=== PATIENT | male | born 1955 | race Caucasian/White ===

== ENCOUNTER 2017-10-27 13:29 | Inpatient (IN) | payer MEDICARE, OTHER ==
--- NOTE | 2017-10-27 13:46 | ED Physician Chart ---
ED Chief Complaint/HPI - Patient Information Date Seen:: 10/27/17 Time Seen:: 13:46 Chief Complaint:: Increased agitation History of Present Illness:: 62 yo male was brought from SNF to ER for evaluation of increased agitation, confusion and aggressive behavior towards staff. Allergies:: Allergies Allergy/AdvReac Type Severity Reaction Status Date / Time promethazine Allergy Verified 04/22/16 15:47 ED Review of Systems - Review of Systems General/Constitutional: No fever Skin: No rash Head: No headache ENT: No nasal drainage Neck: No neck pain Cardio Vascular: No chest pain Pulmonary: No SOB GI: No nausea, No vomiting Musculoskeletal: No bone or joint pain Psychiatric: Prior psych history Neurological: No focal symptoms ED Past Medical History - Past Medical History Past Medical History: Dyslipidemia, Arthritis, Dementia, Other (ENCEPHALPATHY, OSTEOPOROSIS, BPH, INSOMNIA) Social History: Non Smoker, No Alcohol, No Drug Use Psychiatricy History: Schizophrenia, Bipolar, Other (Psychosis, anxiety) Family Medical History - Family Member Mother History Unknown: Yes Ethnicity: Living Status: Still Living Hx Family Cancer: No Hx Family Coronary Artery Disease: No Hx Family Congestive Heart Failure: No Hx Family Hypertension: No ED Physical Exam - Physical Examination General/Constitutional: Awake Eyes: PERRL Skin: No ecchymosis ENMT: Nasal exam nl Neck: No nuchal rigidity Respiratory: No Wheeze/Rhonchi/Rales Cardio Vascular: RRR, No murmur, gallop, rubs, NL S1 S2 GI: No tenderness/rebounding/guarding Extremities: normal strength in all extremities Neuro/Psych: No focal deficits ED Labs/Radiology/EKG Results - Radiology Results Results: CXR: no focal consolidation - EKG Interpretations EKG Time:: 13:54 Rate & Rhythm: Sinus rhythm Comments:: right atrial enlargement, incomplete LBBB ED Assessment - Assessment General Assessment: Psychosis Dementia Assessment/Comments:: CBC, CMP CXR, EKG Patient was cleared for geropsych admission ED Septic Shock - . Is Septic Shock (SBP<90, OR Lactate>4 mmol\L) present?: No ED Reassessment (Disposition) - Reassessment Reassessment Condition:: Unchanged - Patient Disposition Discharge/Transfer:: Geropsych w/in this hosp Admitting Psych Physician:: Arden Villegas ED Discharge Plan - Patient Disposition Admit/Discharge/Transfer: Other Care w/in this hosp Condition at Disposition: Stable
[2017-10-27 14:07] LABS: % BASOPHILS 0.2 % (0.0-2.0); % EOSINOPHILS 0.2 % (0.0-5.0); % LYMPHOCYTES 25.5 % (20.0-50.0); % MONOCYTES 9.6 % (2.0-10.0); % NEUTROPHILS 64.5 % (40.0-80.0); HEMATOCRIT 39.7 % (41.0-60); HEMOGLOBIN 13.3 gm/dL (12-16); LYMPHOCYTE ABSOLUTE 1.9 Th/cmm (1.5-3.0); MEAN CELL VOLUME 92.4 fl (80-99); MEAN CORPUSCULAR HEMOGLOBIN 30.9 pg (26.0-30.0); MEAN CORPUSCULAR HGB CONC 33.4 pg (28.0-36.0); MEAN PLATELET VOLUME 8.6 fl; MONOCYTE ABSOLUTE 0.7 Th/cmm (0.3-1.0); NEUTROPHILE ABSOLUTE 4.7 Th/cmm (1.8-8.0); PLATELET COUNT 96 Th/cmm (150-400); RED CELL DISTRIBUTION WIDTH 14.3 % (11.5-20.0)
--- NOTE | 2017-10-27 14:20 | Diagnostic Imaging Report ---
Portable chest x-ray History: Shortness of breath Allowing for portable technique the heart size is normal. No focal pulmonary parenchymal processes. No hilar or mediastinal abnormalities. Impression: No acute abnormalities.
[2017-10-27 14:34] LABS: ALB/GLOB RATIO 1.4 (1.0-1.8); ALBUMIN 3.7 gm/dL (4.2-5.5); ALKALINE PHOSPHATASE 40 U/L (34-104); ANION GAP 10.1 (7.0-16.0); BILIRUBIN,TOTAL 0.4 mg/dL (0.3-1.0); BUN - UREA NITROGEN 16 mg/dL (7-25); CALCIUM SERUM 9.9 mg/dL (8.6-10.3); CHLORIDE 106 mEq/L (98-107); CREATININE - SERUM 0.8 mg/dL (0.7-1.3); GFR AFRICAN-AMERICAN > 60.0 ml/min (>90); GFR NON AFRICAN-AMERICAN > 60.0 ml/min; GLUCOSE 98 mg/dL (70-105); POTASSIUM SERUM 4.1 mEq/L (3.5-5.1); SGOT 22 U/L (13-39); SGPT/ALT 15 U/L (7-52); SODIUM SERUM 136 mEq/L (136-145); TOTAL PROTEIN,SERUM 6.4 gm/dL (6.0-8.3)
[2017-10-27 14:39] LABS: WHITE BLOOD COUNT 7.3 Th/cmm (4.8-10.8)
[2017-10-27 16:58] VITALS: BP 127/75
[2017-10-28] MEDS ORDERED: Fleet Enema 135 mL RC PRN (07:50)
[2017-10-28] MEDS ORDERED: Magnesium Hydroxide (MOM) 30 mL UDC PO PRN (08:07)
[2017-10-28] MEDS ORDERED: Maalox 30 mL Cup PO SCH (09:00)
[2017-10-28] MEDS: Multivitamin w/ Minerals Tab PO SCH (09:59)
[2017-10-28] MEDS: Maalox 30 mL Cup PO SCH ×3 (12:03→20:46)
--- NOTE | 2017-10-28 16:53 | Consultation ---
DATE OF CONSULTATION: 10/27/2017 INTERNAL MEDICINE CONSULTATION HISTORY OF PRESENT ILLNESS: The patient is a 62-year-old male. PAST MEDICAL HISTORY: Significant for seizure disorder, coronary artery disease, peptic ulcer disease, arthritis, osteoporosis, and hyperlipidemia. SOCIAL HISTORY: No documented smoking, alcohol abuse. FAMILY HISTORY: Not available. REVIEW OF SYSTEMS: The patient had known recent seizure activity. No chest pain, no nausea, no vomiting. Gait is steady and stable. Generalized weakness. CURRENT MEDICATIONS: Include Keppra, senna, Flomax, docusate, Lipitor, Mylanta, and Tylenol. PHYSICAL EXAMINATION: GENERAL: Average male, in obvious respiratory distress. VITAL SIGNS: Include a blood pressure of 110/70, heart rate 80, and respiration rate of 18. SKIN: Show no obvious cellulitis. HEENT: Normal conjunctivae. NECK: Supple. LUNGS: Clear bilateral good entry. No adventitious sounds. HEART: First and second present. ABDOMEN: Soft, minimal epigastric tenderness. Bowel sounds are good. EXTREMITIES: Show arthritis. NEUROLOGIC: The patient has no obvious focal motor deficits. LABORATORY DATA: Include white count 7.3, hemoglobin 13.3, hematocrit 39.7, and platelet count of 96. Sodium 136, potassium 4.1, chloride 106, bicarbonate 24, BUN 16, creatinine 0.8, and blood sugar 98. MEDICAL DIAGNOSES: Include seizure disorder, coronary artery disease, peptic ulcer disease, arthritis, osteoporosis, enlarged prostate, and hyperlipidemia. Thanks Dr. Villegas for letting me see your patient. JOB# [id number]
--- NOTE | 2017-10-28 17:27 | Psychosocial Evaluation ---
DATE OF SERVICE: 10/28/2017 SUBJECTIVE: Staff was spoken to. The patient is interviewed. Chart is reviewed. DISPOSITION HOSPITALIZATION: The patient is admitted here because of his acute agitation from the [facility]. The patient is reported to have been striking out and verbally and physically aggressive and yelling and screaming and very disruptive. PAST PSYCHIATRIC: The patient's sleep and appetite prior to the hospitalization are reported to be poor. PAST PSYCHIATRIC HISTORY: The patient had been hospitalized in the past under my care sometime in 2016. MEDICAL HISTORY: The patient has a history of benign prostatic hyperplasia, hypertension, epilepsy, GERD, and hyperlipidemia. Physical examination is requested and done by Dr. Wilson. SUBSTANCE ABUSE HISTORY: None. PHYSICAL OR SEXUAL ABUSE HISTORY: None. LEGAL PROBLEMS: None at this time. STRENGTH AND ASSETS: The patient is motivated for treatment. MENTAL STATUS EXAMINATION: The patient is a 62-year-old looking older than his stated age, screaming and yelling and getting easily irritable. Coping skills at this time are noted to be very poor. The patient has been having difficult time to cope with the stress. The patient is getting frustrated even when I am talking to him to get some information. The patient is very paranoid. The patient is reported to have been verbally and physically aggressive and abusive. Insight and judgment at this time are noted to be much impaired. Impulse control is very poor. The patient's behavior is likely danger to others. The patient's immediate memory and recent memory are noted to be intact. The patient is aware and alert, but the patient is getting easily frustrated when I am asking the questions. DIAGNOSTIC IMPRESSION: AXIS I: Psychosis, not otherwise specified. AXIS IB: Rule out schizoaffective disorder. AXIS II: None. AXIS III: As per Dr. Wilson. IMMEDIATE TREATMENT PLAN: The patient is going to be observed on inpatient unit. The patient is going to be closely monitored. Encouraged to verbalize the concerns rather than to act out. The patient initially is going to be started on the olanzapine, which is going to be given 5 mg at bedtime and is going to be gradually increased. ESTIMATED LENGTH OF STAY: 5-7 days. DISCHARGE CRITERIA: When he no longer a threat to self or others and be able to cope up with the stress. JOB# [id number]
[2017-10-28] MEDS: Atorvastatin Calcium 10 MG TAB PO SCH (20:46)
[2017-10-29] MEDS: Maalox 30 mL Cup PO SCH ×4 (07:58→21:31)
[2017-10-29] MEDS: Multivitamin w/ Minerals Tab PO SCH (08:54)
--- NOTE | 2017-10-29 13:24 | Progress Notes ---
DATE: 10/29/2017 SUBJECTIVE: Staff was spoken to. Patient is interviewed. Mood is irritable. Affect is constricted. Coping skills are noted to be very poor. Insight and judgment are also noted to be very limited. The patient has been having difficult time to cope with the stress. The patient gets easily irritable and angry. Sleep is noted to be poor. Appetite is noted to be improving. The patient is currently on Depakote 1000 mg twice a day and the patient is also on olanzapine 5 mg at bedtime. The patient's blood work has been negative. Hemoglobin is noted to be 13.3, hematocrit 39.7. Electrolytes are noted to be within normal limits. PLAN: We will be requesting for the Depakote level and the patient is going to be followed up with the supportive therapy. Please note that the patient is still with major behavioral problem and is not ready to be discharged to a lower level of care yet. The patient is being closely monitored for his impulse control problems. [facility]# [id number]
[2017-10-29] MEDS: Atorvastatin Calcium 10 MG TAB PO SCH (21:31)
[2017-10-30] MEDS: Maalox 30 mL Cup PO SCH ×4 (06:37→21:01)
[2017-10-30] MEDS: Multivitamin w/ Minerals Tab PO SCH (10:02)
--- NOTE | 2017-10-30 20:56 | Progress Notes ---
DATE: 10/30/2017 SUBJECTIVE: Staff was spoken to. The patient is interviewed. Mood is noted to be irritable. Affect is constricted. The patient is screaming and yelling. Insight and judgment are noted to be still impaired. Impulse control seems to be limited. Coping skills are noted to be limited. The patient is being maintained on Depakote 1000 mg twice a day and olanzapine 5 mg at bedtime. The patient has been able to tolerate. No side effects to the medications are noted. The patient's Depakote level has been requested. Valproic acid level is noted to be 44.5. The patient is going to be closely monitored for the complaints of the medication. JOB# [id number]
[2017-10-30] MEDS: Atorvastatin Calcium 10 MG TAB PO SCH (21:01)
[2017-10-31] MEDS: Maalox 30 mL Cup PO SCH ×4 (06:49→21:35)
[2017-10-31] MEDS: Multivitamin w/ Minerals Tab PO SCH (08:11)
[2017-10-31] MEDS: Atorvastatin Calcium 10 MG TAB PO SCH (21:32)
--- NOTE | 2017-11-01 01:54 | Consultation ---
DATE OF CONSULTATION: 10/30/2017 REQUESTING PHYSICIAN: Arden Villegas M.D. TYPE OF CONSULTATION: Psychology. HISTORY OF PRESENT ILLNESS: The following is by the review of the medical record as well as by the patient's self report. The patient is a 62 year old male. According to record review, the patient is being admitted from [facility] due to striking out behaviors as well as becoming verbally and physically aggressive and disruptive according to the staff at the patient's facility. Upon interview, the patient is withdrawn and only answering yes or no to certain types of questions in the clinical interview. The patient is displaying some anger with respect to being hospitalized. The patient denied any suicidal ideation or any homicidal ideation with any plan or intention. We will continue and complete the clinical interview when the patient becomes agreeable and compliant. PAST MEDICAL HISTORY: Benign prostatic hyperplasia, hypertension, epilepsy, GERD, hyperlipidemia. Please history and physical by Dr. Wilson. PAST SURGICAL HISTORY: The patient has had a previous hospitalization here in 2016. The patient is under the care of a psychiatrist at his facility. MEDICATIONS: Please see medication reconciliation sheet. ALLERGIES: No known allergies. SUBSTANCE ABUSE HISTORY: The patient denied any history. PSYCHOSOCIAL HISTORY: The patient acknowledged that he lives in the [facility]. The patient did not answer questions about family history, occupational history, educational history, or anabaptism affiliation. MENTAL STATUS EXAMINATION: The patient appears to be his stated age. The patient seemed guarded and dismissive. The patient was yelling on the unit. Eye contact is poor. Mood is irritable. Attitude is uncooperative. Behavior is impulsive and poorly redirectable. The patient did not answer questions about experiencing any hallucinations or delusions. However, the patient appears to be experiencing paranoid ideation. The patient has been verbally aggressive and abusive towards staff here. The patient needs constant redirection. The patient did not perform any other of the clinical mental status examination items. The patient is alert and oriented to place and person, but not date or time. The patient is easily agitated and frustrated and ended the clinical interview stating that he would not answer any more questions. Insight is poor. Judgment is compromised. DIAGNOSTIC IMPRESSION: AXIS I: Psychosis, not otherwise specified. AXIS II: Deferred. REVIEW OF SYSTEMS: Please see history and physical by Dr. Wilson. TREATMENT PLAN: The patient has been seen by Dr. Villegas for psychiatric evaluation and for the management of the patient's psychotropic medications. The patient will be closely monitored. Behavioral limits are in place. We will provide limit setting as well as cognitive and behavioral redirection. We will provide motivational enhancement for the patient to become compliant with all aspects of his care and treatment plan. We will introduce coping strategies for phase of life issues as well as for chronic mental illness. The patient is unable to contract for safety at this time. We will request that the patient verbally agree to no self-harm or no harm to others prior to discharge as well as no episodes of verbal or physical aggression. Thank you, Dr. Villegas for this consult and the opportunity to participate in this patient's care. JOB# [id number] TAY
--- NOTE | 2017-11-01 02:05 | Progress Notes ---
DATE: 10/31/2017 SUBJECTIVE: Staff was spoken to. The patient is interviewed. The patient continues to be irritable and angry. Insight and judgment at this time are noted to be still impaired. Impulse control seems to be limited. The patient has been having difficult time to cope with the stress. The patient needs to be redirected. The patient has been advised to comply with the treatment. The patient is to participate in the groups is noted to be minimal. ASSESSMENT: The patient is still impulsive. PLAN: To continue the patient with the supportive therapy. I encouraged the patient to verbalize the concerns. The patient is going to be continued on the Depakote. JOB# [id number]
[2017-11-01] MEDS: Maalox 30 mL Cup PO SCH ×4 (06:35→21:38)
[2017-11-01] MEDS: Multivitamin w/ Minerals Tab PO SCH (09:08)
--- NOTE | 2017-11-01 19:23 | Progress Notes ---
DATE: 11/01/2017 SUBJECTIVE: Staff was spoken to. The patient is interviewed. Mood is noted to be irritable. Affect is constricted. Insight and judgment are noted to be still impaired. Impulse control seems to be limited. The patient is getting easily irritable and angry. The patient needs to be redirected. The patient has no insight into his illness. He tends to scream and yell. The patient is currently on divalproex sodium 1000 mg twice a day and has been able to tolerate it. The patient is also placed on 5 mg of olanzapine. No side effects to the medications are noted. ASSESSMENT: The patient is still impulsive. PLAN: To continue the patient with the supportive therapy and follow up. [facility]# [id number]
[2017-11-01] MEDS: Atorvastatin Calcium 10 MG TAB PO SCH (21:38)
[2017-11-02] MEDS: Maalox 30 mL Cup PO SCH ×4 (06:50→20:28)
[2017-11-02] MEDS: Multivitamin w/ Minerals Tab PO SCH (08:41)
[2017-11-02] MEDS: Atorvastatin Calcium 10 MG TAB PO SCH (20:28)
--- NOTE | 2017-11-02 23:43 | Progress Notes ---
DATE: 11/02/2017 SUBJECTIVE: The patient was seen, chart reviewed, discussed with staff. The patient is still confused, disorganized, irritable, some anger outburst. Affect is superficial, insight is limited, judgment is impaired. The patient is compliant to his medications. ASSESSMENT: The patient still in psychotic phase, still agitated off and on. PLAN: Continue Zyprexa and Depakote. Continue supportive measures, monitor closely. JOB# [id number]
[2017-11-03] MEDS: Maalox 30 mL Cup PO SCH ×4 (06:40→21:39)
[2017-11-03] MEDS: Multivitamin w/ Minerals Tab PO SCH (09:39)
[2017-11-03] MEDS: Atorvastatin Calcium 10 MG TAB PO SCH (20:33)
[2017-11-04] MEDS: Maalox 30 mL Cup PO SCH ×4 (07:00→21:00)
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
[2017-11-04] MEDS: Multivitamin w/ Minerals Tab PO SCH (08:14)
--- NOTE | 2017-11-04 09:13 | Progress Notes ---
DATE: 11/03/2017 SUBJECTIVE: The patient was seen. Chart reviewed. Still anxious, angry, still irritable, some agitation. The patient at times refusing care, refusing medications. MENTAL STATUS EXAMINATION: Speech is fluent, loud at times. Affect is dysphoric, irritable. The patient's thought process is fragmented. Insight is poor. Judgment is impaired. The patient is oriented to person; not oriented to time or place. Poor short-term memory, could not tell what day of the week, also could not tell his age. ASSESSMENT: The patient is in psychotic phase, still agitated, and is forgetful and confused. PLAN: Continue medication management. Encourage the patient to comply with treatment. The patient is on Zyprexa. Discussed with the nursing staff. The patient at times refused pills. If he continues to refuse, maybe we will change to Haldol liquid or risperidone liquid. We will monitor closely for the time being. JOB# [id number]
[2017-11-04] MEDS: Atorvastatin Calcium 10 MG TAB PO SCH (21:00)
--- NOTE | 2017-11-05 01:05 | Progress Notes ---
DATE: 11/04/2017 SUBJECTIVE: The patient was seen, discussed with staff, chart reviewed. Still anxious, angry at times, becomes irritable, some episodes of refusing care, but his compliance with medication has improved. Appetite is fair. Sleep is fair. Insight remains poor. ASSESSMENT: The patient in psychotic phase, still with some agitation and anger outburst. PLAN: Continue hospitalization. Continue supportive measure. Continue current dose of Zyprexa. Monitor compliance. JOB# [id number]
[2017-11-05] MEDS: Maalox 30 mL Cup PO SCH ×4 (06:59→20:48)
[2017-11-05] MEDS: Multivitamin w/ Minerals Tab PO SCH (08:43)
[2017-11-05] MEDS: Atorvastatin Calcium 10 MG TAB PO SCH (20:48)
--- NOTE | 2017-11-05 21:47 | Progress Notes ---
DATE: 11/05/2017 SUBJECTIVE: The patient was seen, chart reviewed, discussed with staff, still forgetful, confused. He continues to have some anger outburst and agitation, memory calculation, fund of knowledge remains impaired. ASSESSMENT: The patient is still in psychotic phase. PLAN: Continue Zyprexa at current dose. The patient started to comply more in the past couple of days and his agitation is decreasing. JOB# [id number]
[2017-11-06] MEDS: Maalox 30 mL Cup PO SCH ×2 (07:00→21:42)
[2017-11-06] MEDS: Multivitamin w/ Minerals Tab PO SCH (09:02)
[2017-11-06] MEDS: Atorvastatin Calcium 10 MG TAB PO SCH (21:43)
[2017-11-07] MEDS: Maalox 30 mL Cup PO SCH ×5 (06:31→21:12)
--- NOTE | 2017-11-07 06:44 | Progress Notes ---
DATE: 11/06/2017 SUBJECTIVE: The patient was seen, chart reviewed. Still forgetful, confused, still irritable, some anger outbursts, but is compliant with medication, has improved. Appetite is fair. Sleep is fair. The patient's insight is still poor and he remains unpredictable. ASSESSMENT: The patient in psychotic phase. PLAN: Continue Zyprexa 5 mg daily. Continue supportive measures. Continue hospitalization. [facility]# [id number]
[2017-11-07] MEDS: Multivitamin w/ Minerals Tab PO SCH (08:20)
[2017-11-07] MEDS: Atorvastatin Calcium 10 MG TAB PO SCH (21:12)
--- NOTE | 2017-11-08 00:13 | Progress Notes ---
DATE: 11/07/2017 SUBJECTIVE: The patient was seen, chart reviewed. He has been more compliant with his medications, , less agitation, but still forgetful. The patient some anger outburst. The patient is currently on Zyprexa 5 mg daily and his compliance has improved since he started taking his medication more consistently. He is easy to redirect. His yelling episodes are decreasing. ASSESSMENT: The patient still in psychotic phase. Continues to stabilize in a setting, but overall showing improvement. PLAN: Continue supportive measure, continue medication management, continue to monitor closely. JOB# [id number]
[2017-11-08] MEDS: Maalox 30 mL Cup PO SCH ×4 (06:59→21:50)
[2017-11-08] MEDS: Multivitamin w/ Minerals Tab PO SCH (08:30)
--- NOTE | 2017-11-08 19:03 | Progress Notes ---
DATE: 11/08/2017 SUBJECTIVE: The patient was seen today, remains superficial, disorganized, still angry at times, however, he is compliant with medication, has improved. The patient's insight is limited, judgment is impaired. The patient is oriented to person, not oriented to time or place. The patient continues to be in psychotic phase, still agitated. PLAN: Continue hospitalization. Continue stabilization. Monitor closely. Increase Zyprexa to 7.5 mg p.o. at bedtime. JOB# [id number]
[2017-11-08] MEDS: Atorvastatin Calcium 10 MG TAB PO SCH (21:50)
[2017-11-09] MEDS: Maalox 30 mL Cup PO SCH ×4 (06:42→21:05)
[2017-11-09] MEDS: Multivitamin w/ Minerals Tab PO SCH (08:32)
[2017-11-09] MEDS: Atorvastatin Calcium 10 MG TAB PO SCH (21:05)
--- NOTE | 2017-11-09 22:26 | Progress Notes ---
DATE: 11/09/2017 SUBJECTIVE: The patient was seen, chart reviewed, discussed with staff. Still forgetful, confused, still irritable, some anger outbursts, but easy to redirect by staff. The patient is taking his medications, tolerating the increased dose of Zyprexa to 7.5 mg at nighttime. ASSESSMENT: The patient continues to stabilize. Continue supportive measures, monitor closely. JOB# [id number]
[2017-11-10] MEDS: Maalox 30 mL Cup PO SCH ×4 (06:44→16:35)
[2017-11-10] MEDS: Multivitamin w/ Minerals Tab PO SCH ×2 (09:05→09:09)
--- NOTE | 2017-11-10 20:29 | Progress Notes ---
DATE: 11/10/2017 SUBJECTIVE: The patient was seen, remains forgetful, confused, still with some irritable moments and some anger outburst. However, his appetite and sleep are fair. The patient is compliant with his Zyprexa and the dose was increased and he has no side effects, no sedation. ASSESSMENT: The patient still in psychotic phase, still agitated and still requires being . PLAN: Hopefully, his condition will further stabilize in the next 1-3 days and be able to send him back to his detention facility. JOB# [id number]
--- NOTE | 2017-11-25 14:14 | Discharge Summary ---
DATE OF DISCHARGE: 11/10/2017 IDENTIFYING DATA: The patient is a 62-year-old male, resident of [facility]. JUSTIFICATION OF HOSPITALIZATION: The patient is admitted here on a voluntary basis for his aggressive, screaming and yelling behavior. CHIEF COMPLAINT: "I don't need to be in here." DIAGNOSES AT THE TIME OF ADMISSION: AXIS I: Rule out schizoaffective disorder. AXIS II: None. AXIS III: As per Dr. Wilson. HISTORY OF PRESENT ILLNESS: Please refer to the 10/28/2017 dictation done by me. Physical examination at the time of admission was done by Dr. Wilson and is noted to be significant for the patient having coronary artery disease, seizure disorder, peptic ulcer disease, arthritis, and hyperlipidemia. Lab studies done at the hospitalization have been reviewed by Dr. Wilson. HOSPITAL COURSE AND RESPONSE TO TREATMENT: The patient has been observed on inpatient unit, provided with supportive psychotherapy. In view of his impulsivity, the patient has been started on the olanzapine, which was gradually increased to 20 mg at bedtime. The patient also has been encouraged to comply with the Depakote, which was given 1000 mg two of them at bedtime. With these medications, the patient has been encouraged and closely monitored. No side effects to medications are noted and the patient was finally discharged to [place] to be followed up on an outpatient basis. MENTAL STATUS EXAMINATION AT THE TIME OF THE DISCHARGE: The patient's mood is noted to be anxious. Affect is appropriate. Not suicidal or homicidal. Insight and judgment are improving. Impulse control seems to be fair. No side effects to medications are noted. DIAGNOSES AT THE TIME OF DISCHARGE: AXIS I: Schizoaffective disorder. AXIS II: None. AXIS III: As per Dr. Wilson. AFTERCARE PLAN: The patient is discharged to [facility] to be followed up by Dr. Fallon. [facility]# [id number]
== END 2017-11-10 19:25 | disposition home or self-care (01) | DRG 885 ==
LOC: ER 13:29 → GERO 15:12
PROVIDERS: ADMIT Psychiatry & Neurology Psychiatry; ATTEND Psychiatry & Neurology Psychiatry
DX: F29 Unspecified psychosis not due to a substance or known physiological condition (principal); G40.909 Epilepsy, unspecified, not intractable, without status epilepticus; E78.5 Hyperlipidemia, unspecified; I10 Essential (primary) hypertension; N40.0 Benign prostatic hyperplasia without lower urinary tract symptoms; I25.10 Atherosclerotic heart disease of native coronary artery without angina pectoris; K27.9 Peptic ulcer, site unspecified, unspecified as acute or chronic, without hemorrhage or perforation; M19.90 Unspecified osteoarthritis, unspecified site; K21.9 Gastro-esophageal reflux disease without esophagitis; M81.0 Age-related osteoporosis without current pathological fracture; Z88.8 Allergy status to other drugs, medicaments and biological substances
CPT/HCPCS: 36415-UA; 71045-TC; 80053-TC; 80164-TC; 84443-TC; 85025-TC; 90899; 93005; G0410; J7051; Z7610

== ENCOUNTER 2018-09-27 19:01 | Inpatient (IN) | payer MEDICARE, OTHER ==
--- NOTE | 2018-09-27 19:30 | ED Physician Chart ---
ED Chief Complaint/HPI - Patient Information Date Seen:: 09/27/18 Time Seen:: 19:20 Chief Complaint:: increased agitation History of Present Illness:: At his extended care facility patient has been demonstrating increased agitation and talking with an angry voice. He continuously paces in and out of his room. Has been walking and running in the hallway and has not been easily redirected. Sometimes he screams at the staff Allergies:: Allergies Allergy/AdvReac Type Severity Reaction Status Date / Time promethazine Allergy Verified 04/22/16 15:47 Historian:: Patient Review:: Transfer documents Reviewed ED Review of Systems - Review of Systems General/Constitutional: No fever, No chills Skin: No skin lesions Head: No headache Eyes: No loss of vision ENT: No earache Neck: No neck pain Cardio Vascular: No chest pain, No palpitations Pulmonary: No SOB GI: No nausea, No vomiting, No diarrhea Musculoskeletal: No bone or joint pain Endocrine: No polyuria Psychiatric: Prior psych history Hematopoietic: No bruising ED Past Medical History - Past Medical History Past Medical History: Dyslipidemia, PUD/GERD, Seizures, Other (atherosclerotic heart disease; 9 prostatic hypertrophy; upper lipidemia; anxiety; bipolar) Family History: Other (not available) Social History: Non Smoker, No Alcohol Surgical History: None, other Psychiatricy History: Bipolar Medication: Reviewed Family Medical History - Family Member Mother History Unknown: Yes Ethnicity: Living Status: Still Living Hx Family Cancer: No Hx Family Coronary Artery Disease: No Hx Family Congestive Heart Failure: No Hx Family Hypertension: No ED Physical Exam - Physical Examination General/Constitutional: Awake, Alert, No distress, Non-toxic appearing Other Gen/Cons comments:: Patient is confused; he does not know the correct year Head: Atraumatic Eyes: Lids, conjuctiva normal, PERRL, EOMI Skin: Nl inspection, No rash, No skin lesions, No ecchymosis, Well hydrated, No lymphadenopathy ENMT: External ears, nose nl, Nasal exam nl, Lips, teeth, gums nl Neck: Nontender, Full ROM w/o pain, No JVD, No nuchal rigidity, No bruit, No mass, No stridor Respiratory: Nl effort/Exclusion, Clear to Auscultation, No Wheeze/Rhonchi/Rales Cardio Vascular: RRR, No murmur, gallop, rubs, NL S1 S2 GI: No tenderness/rebounding/guarding, No organomegaly, No hernia, Normal BS's, Nondistended, No mass/bruits, No McBurney tenderness : No CVA tenderness Extremities: No tenderness or effusion, Full ROM, normal strength in all extremities, No edema, Normal digits & nails Neuro/Psych: Alert/oriented, DTR's symmetric, Normal sensory exam, Normal motor strength, Judgement/insight normal, Mood normal, Normal gait, No focal deficits Misc: Normal back, No paraspinal tenderness ED Labs/Radiology/EKG Results - Lab Results Results: Abnormal Lab Results 09/27/18 09/27/18 19:40 19:40 WBC 8.5 RBC 4.30 Hgb 12.8 Hct 38.9 L MCV 90.4 MCH 29.8 MCHC Differential 32.9 RDW 13.6 Plt Count 125 L MPV 8.4 Neutrophils % 61.1 Lymphocytes % 25.7 Monocytes % 12.6 H Eosinophils % 0.2 Basophils % 0.4 Sodium 140 Potassium 4.0 Chloride 107 Carbon Dioxide 24.1 Anion Gap 12.9 BUN 33 H Creatinine 0.9 Est GFR ( Amer) > 60.0 Est GFR (Non-Af Amer) > 60.0 BUN/Creatinine Ratio 36.7 Glucose 93 Calcium 9.6 Total Bilirubin 0.4 AST 50 H ALT 21 Alkaline Phosphatase 39 Total Protein 6.1 Albumin 3.4 L Globulin 2.7 Albumin/Globulin Ratio 1.3 Triglycerides 95 Cholesterol 103 LDL Cholesterol Direct 47 L HDL Cholesterol 43 ED Septic Shock - . Is Septic Shock (SBP<90, OR Lactate>4 mmol\L) present?: No ED Reassessment (Disposition) - Reassessment Reassessment Condition:: Unchanged - Diagnosis Diagnosis:: Dementia with agitation and aggressive behavior - Patient Disposition Admitted to:: [facility] Admitting Medical Physician:: Gt Wilson Admitting Psych Physician:: Arden Villegas
[2018-09-27 19:54] LABS: MEAN CELL VOLUME 90.4 fl (80-99); MONOCYTE ABSOLUTE 1.1 Th/cmm (0.3-1.0)
[2018-09-27 19:58] LABS: % BASOPHILS 0.4 % (0.0-2.0); % EOSINOPHILS 0.2 % (0.0-5.0); % LYMPHOCYTES 25.7 % (20.0-50.0); % MONOCYTES 12.6 % (2.0-10.0); % NEUTROPHILS 61.1 % (40.0-80.0); HEMATOCRIT 38.9 % (41.0-60); HEMOGLOBIN 12.8 gm/dL (12-16); LYMPHOCYTE ABSOLUTE 2.2 Th/cmm (1.5-3.0); MEAN CORPUSCULAR HEMOGLOBIN 29.8 pg (26.0-30.0); MEAN CORPUSCULAR HGB CONC 32.9 pg (28.0-36.0); MEAN PLATELET VOLUME 8.4 fl; NEUTROPHILE ABSOLUTE 5.2 Th/cmm (1.8-8.0); PLATELET COUNT 125 Th/cmm (150-400); RED CELL DISTRIBUTION WIDTH 13.6 % (11.5-20.0); WHITE BLOOD COUNT 8.5 Th/cmm (4.8-10.8)
[2018-09-27 20:06] LABS: ALB/GLOB RATIO 1.3 (1.0-1.8); ALBUMIN 3.4 gm/dL (4.2-5.5); ALKALINE PHOSPHATASE 39 U/L (34-104); ANION GAP 12.9 (7.0-16.0); BILIRUBIN,TOTAL 0.4 mg/dL (0.3-1.0); BUN - UREA NITROGEN 33 mg/dL (7-25); CALCIUM SERUM 9.6 mg/dL (8.6-10.3); CARBON DIOXIDE 24.1 mEq/L (21.0-31.0); CHLORIDE 107 mEq/L (98-107); CHOLESTEROL 103 mg/dL (<200); CREATININE - SERUM 0.9 mg/dL (0.7-1.3); GFR AFRICAN-AMERICAN > 60.0 ml/min (>90); GFR NON AFRICAN-AMERICAN > 60.0 ml/min; GLUCOSE 93 mg/dL (70-105); HDL -HIGH DENSITY LIPOPROTEIN 43 mg/dL (23-92); SGOT 50 U/L (13-39); SGPT/ALT 21 U/L (7-52); SODIUM SERUM 140 mEq/L (136-145); TOTAL PROTEIN,SERUM 6.1 gm/dL (6.0-8.3); TRIGLYCERIDES 95 mg/dL (<150)
[2018-09-27 22:15] VITALS: BP 104/61
[2018-09-27] MEDS ORDERED: Fleet Enema 135 mL RC PRN (22:48)
[2018-09-27] MEDS ORDERED: Magnesium Hydroxide (MOM) 30 mL UDC PO PRN (22:58)
[2018-09-27] MEDS ORDERED: Maalox 30 mL Cup PO PRN (22:59)
[2018-09-28] MEDS ORDERED: Non-Formulary Item 1 EA (Cranberry [Cranberry] 425 MG) PO SCH (09:00)
[2018-09-28] MEDS ORDERED: Non-Formulary Item 1 EA (Docusate Sodium [Docusate Sodium] 100 MG) PO SCH (09:00)
[2018-09-28] MEDS: Multivitamin w/ Minerals Tab PO SCH (09:31)
[2018-09-28] MEDS: Atorvastatin Calcium 10 MG TAB PO SCH (20:48)
[2018-09-28] MEDS ORDERED: Non-Formulary Item 1 EA (Melatonin [Melatonin] 3 MG) PO SCH (21:00)
--- NOTE | 2018-09-29 01:34 | Psychiatric Evaluation ---
DATE OF SERVICE: 09/28/2018 IDENTIFYING DATA: The patient is a 63-year-old male admitted from the [facility]. Information obtained directly interviewing the patient as well as reviewing the admission papers and they are reliable. JUSTIFICATION OF HOSPITALIZATION: The patient is admitted on a voluntary basis in view of his agitation and out of control behavior. CHIEF COMPLAINT: "I don't know, they sent me in here." HISTORY OF PRESENT ILLNESS: This is one of multiple psychiatric hospitalizations for this patient who is known to me from the previous psychiatric hospitalizations and treatment. The patient has been grossly psychotic and aggressive and has been testing the limits to the care home facility and the patient has been sent over here for stabilization. PAST PSYCHIATRIC HISTORY: Please refer to the above. Physical examination is requested to be done by Dr. Wilson. SUBSTANCE ABUSE HISTORY: None. PHYSICAL OR SEXUAL ABUSE HISTORY: None. LEGAL PROBLEMS: None at this time. STRENGTH AND ASSETS: The patient is motivated. MENTAL STATUS EXAMINATION: The patient is a 63-year-old, looking his stated age, superficially cooperative, very agitated and gets easily upset when I am asking the questions. Speech is noted to be coherent and relevant, but the patient again gets easily aggressive and verbally abusive. Paranoid delusions are noted. The patient is aggressive at this time and insight and judgment are very much impaired. Impulse control is noted to be poor. Coping skills are also noted to be very poor. However, the patient is noted to be alert and oriented to time, place and person. Attention span and concentration are noted to be poor at this time. The patient's behavior is equally danger to others. DIAGNOSES AT THE TIME OF ADMISSION: AXIS I: Schizoaffective disorder. AXIS II: None. AXIS III: As per Dr. Wilson. IMMEDIATE TREATMENT PLAN: The patient is going to be observed on inpatient unit, provided with supportive psychotherapy. The patient is going to be continued on current medications such as the olanzapine and the Depakote. ESTIMATED LENGTH OF STAY: 3-5 days. DISCHARGE CRITERIA: When he no longer a threat to self or others and be able to cope up with the stress. JOB# [id number]
[2018-09-29] MEDS: Multivitamin w/ Minerals Tab PO SCH (08:47)
--- NOTE | 2018-09-29 10:10 | History & Physical ---
ADMIT DATE: 09/27/2018 INTERNAL MEDICINE CONSULTATION The patient is a 63-year-old male seen at [facility]. CURRENT MEDICAL PROBLEMS: Include seizure disorder, hyperlipidemia, arthritis, peptic ulcer disease, enlarged prostate, and coronary artery disease. SOCIAL HISTORY: No documented smoking, alcohol abuse. FAMILY HISTORY: Not available. REVIEW OF SYSTEMS: The patient has no obvious chest pain, no shortness of breath. No nausea or vomiting. Unstable gait. No recent fall. PHYSICAL EXAMINATION: VITAL SIGNS: Stable. LUNGS: Clear. HEART: First and second heart sound are normal. No gallop. Systolic present. ABDOMEN: Soft. Bowel sounds present. EXTREMITIES: Show arthritis. NEUROLOGIC: The patient has no focal motor deficit. LABORATORY DATA: Include white count 8.5, hemoglobin 12.8, hematocrit 38.9, platelet count of 125. Sodium 140, potassium 4, chloride 107, bicarbonate 24.1, BUN 33, creatinine 0.9. LFTs mildly elevated, AST of 50. TSH is normal. Lipid profile is unremarkable. ADMITTING DIAGNOSES: Include seizure disorder, hyperlipidemia, coronary artery disease, peptic ulcer disease, gastritis, enlarged prostate, and hyperlipidemia. PLAN: The patient currently on Maalox, Tylenol, Lipitor, vitamin D supplementation, Keppra, milk of magnesia, Fleet enema and Flomax. JOB# [id number]
--- NOTE | 2018-09-29 16:18 | Progress Notes ---
DATE: 09/29/2018 SUBJECTIVE: Staff was spoken to. The patient is interviewed. Mood is noted to be irritable. Affect is constricted. Insight and judgment are noted to be still impaired. Impulse control is noted to be poor. Coping skills are also noted to be very poor. The patient has been having difficult time to cope with the stress. The patient is getting out of the GD chair. The patient is getting easily irritable and has been running towards the exit door to leave the place. The patient is very impulsive at this time and is not able to be contained. The patient is currently on olanzapine and Depakote. PLAN: To continue the patient with the current medications. I encouraged the patient to verbalize the concerns rather than to act out. In view of the patient's acute psychosis, increased impulsivity, the patient is not ready to be discharged to a lower level of care. JOB# [id number]
--- NOTE | 2018-09-29 16:55 | Progress Notes ---
DATE: 09/28/2018 INTERNAL MEDICINE CONSULTATION FOLLOWUP SUBJECTIVE: The patient is a 63-year-old male. Current medical history includes seizure disorder, hyperlipidemia, arthritis, enlarged prostate, and coronary artery disease. CHIEF COMPLAINT: No new seizure activity, no vomiting, no diarrhea, no melena or hematochezia. OBJECTIVE: VITAL SIGNS: Stable. LUNGS: Clear. HEART: First and second heart sounds normal. Systolic present. ABDOMEN: Soft, bowel sounds present. EXTREMITIES: Show arthritis. NEUROLOGIC: The patient has no focal motor deficits. MEDICAL DIAGNOSIS: Remain the same. Psych consultation reviewed. JOB# [id number]
[2018-09-29] MEDS: Atorvastatin Calcium 10 MG TAB PO SCH (20:17)
--- NOTE | 2018-09-30 00:09 | Progress Notes ---
DATE: 09/29/2018 INTERNAL MEDICINE CONSULTATION The patient is a 63-year-old male. Current medical symptoms include seizure disorder, hypertension, coronary artery disease, peptic ulcer disease, gastritis, arthritis, osteoporosis, hyperlipidemia. No new symptoms. OBJECTIVE: VITAL SIGNS: Stable. LUNGS: Clear. HEART: First and second heart sounds normal. S1, S2 present. ABDOMEN: Soft. Bowel sounds present. EXTREMITIES: Show arthritis. NEUROLOGIC: The patient has no focal deficit. MEDICAL DIAGNOSES: Seizure disorder, hypertension, coronary artery disease, peptic ulcer disease, gastritis, arthritis, osteoporosis, hyperlipidemia. PLAN: Continue current medical management. Psych consult reviewed. JOB# [id number]
[2018-09-30] MEDS: Multivitamin w/ Minerals Tab PO SCH (09:47)
[2018-09-30] MEDS: Atorvastatin Calcium 10 MG TAB PO SCH (20:26)
--- NOTE | 2018-09-30 21:44 | Progress Notes ---
DATE: 09/30/2018 INTERNAL MEDICINE CONSULTATION FOLLOWUP SUBJECTIVE: The patient is a 63-year-old male. Current medical problems include seizure disorder, hyperlipidemia, arthritis, enlarged prostate, peptic ulcer disease and coronary artery disease. No new symptoms. No new seizure activity. OBJECTIVE: VITAL SIGNS: Stable. LUNGS: Clear. HEART: First and second heart sound are normal. ABDOMEN: Soft, Bowel sounds present. EXTREMITIES: Show arthritis. NEUROLOGIC: No focal deficit. Continue current medical management. Psych consult reviewed. JOB# [id number]
--- NOTE | 2018-09-30 22:11 | Progress Notes ---
DATE: 09/30/2018 PSYCHIATRIC PROGRESS NOTE SUBJECTIVE: Staff was spoken to. The patient is interviewed. Mood is noted to be irritable. Affect is constricted. The patient is still having mood swing. The patient has been trying to get out of the GD chair. The patient has no insight into his illness. Coping skills at this time are noted to be very poor. PLAN: To continue the patient with the supportive therapy. I encouraged the patient to verbalize the concerns rather than to act out. JOB# [id number]
--- NOTE | 2018-10-01 06:20 | Consultation ---
DATE OF CONSULTATION: 09/29/2018 REFERRING PHYSICIAN: Arden Villegas M.D. TYPE OF CONSULTATION: Psychology. HISTORY OF PRESENT ILLNESS: The patient is a 63-year-old male. The patient is admitted from [facility] and is a resident there. The following is by record review and by the patient's self-report. The patient is being admitted due to acute agitation and out of control behavior. Upon interview, the patient states he does not know why he is being hospitalized and the patient appears to be aggressive and has been testing limits with the staff. The staff at the patient's facility reports the patient's behavior had become more aggressive as well as impulsive and he had been testing limits with the staff there at his placement. The patient denied any suicidal ideation, plan or intention. The patient presents as guarded and suspicious as well as generally unmotivated to continue with the rest of the clinical interview and staff direction. PAST MEDICAL HISTORY: Please see history and physical by Dr. Wilson. PAST PSYCHIATRIC HISTORY: The patient has history of multiple psychiatric hospitalizations. The patient has been seen by this caption writer previously in another hospitalization. The patient is under the care of a psychiatrist at his placement. The patient has a history of schizoaffective disorder. SUBSTANCE ABUSE HISTORY: The patient did not answer these questions. PSYCHOSOCIAL HISTORY: The patient did not answer these questions including occupational or educational history or buddhism affiliation. The patient did not answer questions about history of physical or sexual abuse or current legal problems. The patient did not answer questions about family members involved in his care or family relationships or any other type of identifying data or demographics. MENTAL STATUS EXAMINATION: The patient appears to be his stated age. The patient's attitude is guarded and suspicious. Eye contact is poor. Speech is pressured and loud. The patient's behavior is agitated and easily upset. The patient is answering questions mostly relevantly. There is some evidence of paranoid ideation to be noted. The patient denied any suicidal ideation or homicidal ideation, plan or intention. The patient denied auditory or visual hallucinations. The patient's behavior has been difficult to redirect on the unit. Impulse control is inadequate. Concentration is poor. Sensorium is alert and oriented to person and place. The patient did not participate in the memory assessment. The patient did not participate in the interpretation of proverbs. Insight is impaired. Judgment is impaired. DIAGNOSTIC IMPRESSION: AXIS I: History of schizoaffective disorder. AXIS II: Deferred. AXIS III: Per Dr. Wilson. TREATMENT PLAN: The patient has been seen by Dr. Villegas for psychiatric evaluation and for the management of the patient's psychotropic medications. We will provide supportive psychotherapy to include limit setting and de-escalation with behavioral management and redirection. We will encourage the patient to demonstrate emotional and self regulation and to be able to verbalize concerns versus acting out. We will provide motivational enhancement for the patient to become compliant to stay compliant with all aspects of his care and treatment. We will provide coping strategies for chronic severe mental illness as well as phase of life issues. We will encourage the patient to be able to verbally contract for safety, including no self-harm and no harm to others. Supportive psychotherapy will be continued throughout the patient's hospital stay. Thank you, Dr. Villegas, for this consult and the opportunity to participate in this patient's care. [facility]# [id number] MTDDarrell
[2018-10-01] MEDS: Multivitamin w/ Minerals Tab PO SCH (09:03)
[2018-10-01] MEDS: Atorvastatin Calcium 10 MG TAB PO SCH (20:51)
--- NOTE | 2018-10-01 23:08 | Progress Notes ---
DATE: 10/01/2018 INTERNAL MEDICINE CONSULTATION The patient is a 63-year-old man. Current medical problems include seizure disorder, hyperlipidemia, arthritis, peptic ulcer disease, gastritis, enlarged prostate. No new symptoms. PHYSICAL EXAMINATION: VITAL SIGNS: Stable. LUNGS: Clear. HEART: First and second heart sounds are normal. Systolic present. ABDOMEN: Soft. Bowel sounds appear good. EXTREMITIES: Show arthritis. NEUROLOGIC: The patient has no focal motor deficits. PLAN: Continue current medical management. Psych consult reviewed. JOB# [id number]
--- NOTE | 2018-10-02 03:46 | Progress Notes ---
DATE: 10/01/2018 PSYCHIATRIC PROGRESS NOTE SUBJECTIVE: Staff was spoken to. The patient is interviewed. Mood is noted to be irritable. Affect is constricted. The patient is still testing the limits. Coping skills at this time are noted to be poor. Insight and judgment are also noted to be impaired. No side effects to the medications are noted. The patient, however, has been very impulsive and has been trying to get out of the GD chair. ASSESSMENT: The patient is still impulsive. PLAN: To continue the patient with the current medications and followup. JOB# [id number]
[2018-10-02] MEDS: Multivitamin w/ Minerals Tab PO SCH (08:30)
[2018-10-02] MEDS: Atorvastatin Calcium 10 MG TAB PO SCH (20:22)
--- NOTE | 2018-10-02 22:40 | Progress Notes ---
DATE: 10/02/2018 INTERNAL MEDICINE CONSULTATION FOLLOWUP SUBJECTIVE: The patient is a 63-year-old male. CURRENT MEDICAL PROBLEMS: Include seizure disorder, hyperlipidemia, enlarged prostate, peptic ulcer disease, gastritis, and hyperlipidemia. No new symptoms. No seizure activity. OBJECTIVE: VITAL SIGNS: Stable. LUNGS: Clear. HEART: Frist and second heart sounds normal. Systolic present. ABDOMEN: Soft. Bowel sounds present good. EXTREMITIES: Show arthritis. NEUROLOGICAL: The patient no focal deficit. Continue current medical management. Psych consultation reviewed. JOB# [id number]
--- NOTE | 2018-10-03 00:44 | Progress Notes ---
DATE: 10/01/2018 SUBJECTIVE: The patient is seen and interviewed. Case is discussed with staff. The patient presents as irritable. Staff reports the patient has been testing the limits. The patient's impulse control is poor. Staff reports the patient is consistently trying to get out of his Mariela chair. The patient was dismissive of the clinical questions being asked. Sleep is poor. Appetite is poor. OBJECTIVE: Mood irritable. Affect is constricted. Thought process shows to be confused and concrete. The patient denied any hallucinations or delusions. The patient's behavior has been difficult to redirect and he has been testing limits with staff. Impulse control is poor. ASSESSMENT AND PLAN: We provided re-motivation and behavioral redirection for the patient to become compliant and stay compliant with all aspects of his care and treatment and to follow through with staff direction. We provided positive reinforcement for the patient to continue to take his p.o. medications. We provided reality integration and orientation. We also provided limit setting and boundary definitions. We provided coping strategies for phase of life issues as well. We will follow up in 2 to 3 days to continue treatment. JOB# [id number] MTDD
--- NOTE | 2018-10-03 02:54 | Progress Notes ---
DATE: 10/02/2018 PSYCHIATRIC PROGRESS NOTE SUBJECTIVE: Staff was spoken to. The patient is interviewed. Mood is noted to be irritable. Affect is constricted. Insight and judgment are noted to be still impaired. Impulse control is noted to be poor. Coping skills are also noted to be very poor. The patient has been having difficult time to cope with the stress. No side effects to the medications are noted. ASSESSMENT: The patient is still psychotic and impulsive. PLAN: To continue the patient with the current medications. I encouraged the patient to verbalize the concerns rather than to act out. JOB# [id number]
[2018-10-03] MEDS: Multivitamin w/ Minerals Tab PO SCH (09:46)
--- NOTE | 2018-10-03 19:53 | Consultation ---
DATE OF CONSULTATION: 10/03/2018 INTERNAL MEDICINE CONSULTATION The patient is a 63-year-old male. CURRENT MEDICAL PROBLEMS: Include seizure disorder, hyperlipidemia, coronary artery disease, enlarged prostate, peptic ulcer disease, gastritis, arthritis, osteoporosis. No new symptoms. OBJECTIVE: VITAL SIGNS: Stable. LUNGS: Clear. HEART: First and second heart sounds are normal. Systolic present. ABDOMEN: Soft. Bowel sounds present and good. EXTREMITIES: Show arthritis. NEUROLOGIC: The patient has dementia. PLAN: Continue current medical management. Psych consult reviewed. JOB# [id number]
[2018-10-03] MEDS: Atorvastatin Calcium 10 MG TAB PO SCH (20:37)
--- NOTE | 2018-10-03 23:27 | Progress Notes ---
DATE: 10/03/2018 SUBJECTIVE: The patient is seen and interviewed. The patient presents with an irritable mood. The staff reports that the patient's impulse control is still poor and is difficult to redirect. The patient states that he does not need to be hospitalized. The patient is taking his p.o. meds. OBJECTIVE: Mood irritable. Affect constricted. Thought process is confused and concrete. The patient denied any hallucinations or delusions. The patient denies any suicidal ideation, plan, or intention. The patient's behavior is still very impulsive. ASSESSMENT AND PLAN: We provided de-escalation as well as limit setting. We provided reality orientation, differentiation and integration. We encouraged the patient to verbalize his concerns versus acting out. We also encouraged the patient to demonstrate emotional and self-regulation. We will continue to provide coping strategies for phase of life issues as well as for chronic severe mental illness. Follow up 2 to 3 days to continue present treatment. JOB# [id number] TAY
--- NOTE | 2018-10-04 03:22 | Progress Notes ---
DATE: 10/03/2018 PSYCHIATRIC PROGRESS NOTE SUBJECTIVE: Staff was spoken to. The patient is interviewed. Mood is noted to be less irritable. Affect is constricted. Insight and judgment at this time are noted to be still impaired. Impulse control is noted to be limited. Coping skills are noted to be limited. The patient tends to scream and yell. ASSESSMENT: The patient is still impulsive. PLAN: To continue the patient with the supportive therapy. I encouraged the patient to verbalize the concerns rather than to act out. JOB# [id number]
[2018-10-04] MEDS: Multivitamin w/ Minerals Tab PO SCH (08:58)
--- NOTE | 2018-10-04 12:26 | Progress Notes ---
DATE: 10/04/2018 SUBJECTIVE: Staff was spoken to. The patient is interviewed. Mood is noted to be irritable. Affect is constricted. Insight and judgment at this time are noted to be still impaired. Impulse control is noted to be limited. The patient has been getting easily agitated and frustrated. The patient needs to be redirected. The patient is not ready to be discharged to a lower level of care yet because of his impulsive behavior. The patient is going to be followed up with the supportive therapy. JOB# [id number]
[2018-10-04] MEDS: Atorvastatin Calcium 10 MG TAB PO SCH (20:15)
--- NOTE | 2018-10-04 21:16 | Progress Notes ---
DATE: 10/04/2018 INTERNAL MEDICINE CONSULTATION FOLLOWUP SUBJECTIVE: The patient is a 63-year-old male. Current medical problems include seizure disorder, hyperlipidemia, arthritis, peptic ulcer disease, enlarged prostate, coronary artery disease. No new symptoms. No new seizure activity. OBJECTIVE: VITAL SIGNS: Stable. LUNGS: Clear. HEART: First and second heart sounds are normal. Systolic present. ABDOMEN: Soft. Bowel sounds present. EXTREMITIES: Show arthritis. NEUROLOGIC: The patient has dementia. PLAN: Continue current medical management. Psych consult reviewed. JOB# [id number]
[2018-10-05] MEDS: Multivitamin w/ Minerals Tab PO SCH (09:46)
[2018-10-05] MEDS: Atorvastatin Calcium 10 MG TAB PO SCH (20:47)
--- NOTE | 2018-10-06 08:02 | Progress Notes ---
DATE: 10/05/2018 INTERNAL MEDICINE CONSULTATION FOLLOWUP SUBJECTIVE: The patient is 63-year-old male. CURRENT MEDICAL PROBLEMS: Include seizure disorder, hyperlipidemia, arthritis, peptic ulcer disease, coronary artery disease, enlarged prostate. No new symptoms. No recent seizure activity. OBJECTIVE: VITAL SIGNS: Stable. LUNGS: Clear. HEART: First and second heart sound normal. Systolic present. ABDOMEN: Soft. Bowel sounds good. EXTREMITIES: Show arthritis. NEUROLOGIC: The patient has no focal motor deficit. PLAN: Continue current medical management and psych consult reviewed. JOB# [id number]
--- NOTE | 2018-10-06 08:34 | Progress Notes ---
DATE: 10/05/2018 SUBJECTIVE: Staff was spoken to. The patient is interviewed. Mood is noted to be irritable. Affect is constricted. Insight and judgment at this time are noted to be still impaired. Impulse control is noted to be limited. Coping skills are noted to be limited. The patient has been having difficult time to cope with the stress. The patient has been getting easily agitated. It is difficult to redirect the patient at this time. No side effects to the medications are noted. The patient is currently on the valproic acid, he has been getting 1000 mg twice a day and the patient is also on olanzapine 5 mg at bedtime. ASSESSMENT: The patient is still impulsive. PLAN: To continue the patient with the supportive therapy, encouraged the patient to verbalize the concerns rather than to act out. JOB# [id number]
[2018-10-06] MEDS: Multivitamin w/ Minerals Tab PO SCH (09:06)
--- NOTE | 2018-10-06 09:53 | Diagnostic Imaging Report ---
Exam: Right hip joint. HISTORY: Pain Findings: Multiple views of the right hip joint demonstrates no evidence of fracture dislocation of the head of right femur is well within its status post. The visualized pelvis is intact. IMPRESSION: Normal examination right hip joint.
--- NOTE | 2018-10-06 09:54 | Diagnostic Imaging Report ---
Exam: Left hip joint HISTORY: Pain Findings: Multiple views of left hip joint demonstrate no evidence of fracture dislocation. Mild deformity of the left femoral head appreciated. IMPRESSION: Essentially unremarkable examination left hip joint, deformity of the left femoral head most likely old.
--- NOTE | 2018-10-06 16:03 | Progress Notes ---
DATE: 10/06/2018 PSYCHIATRIC PROGRESS NOTE PROGRESS ON THE UNIT: Staff was spoken to. The patient is interviewed. Mood is noted to be irritable. Affect is constricted. Insight and judgment are noted to be still impaired. Impulse control is noted to be limited. Coping skills are noted to be limited. The patient has been having difficult time to cope with the stress. The patient has no insight into his illness. The patient needs to be redirected. The patient is getting easily irritable and angry at this time. ASSESSMENT: The patient is still impulsive. PLAN: To continue the patient with Depakote and Zyprexa and follow the patient up with supportive therapy. JOB# [id number]
[2018-10-06] MEDS: Atorvastatin Calcium 10 MG TAB PO SCH (21:01)
--- NOTE | 2018-10-06 21:28 | Progress Notes ---
DATE: 10/06/2018 INTERNAL MEDICINE CONSULTATION FOLLOWUP SUBJECTIVE: The patient complaining of generalized ache, pain, also possible hip pain. The patient had x-rays done and no fracture, just osteoarthritis. OBJECTIVE: VITAL SIGNS: Stable. LUNGS: Clear. HEART: First and second heart sound normal. ABDOMEN: Soft. Bowel sounds present. EXTREMITIES: Show arthritis. NEUROLOGIC: The patient has advanced psychosis. CURRENT MEDICAL DIAGNOSES: Include seizure disorder, hyperlipidemia, arthritis, peptic ulcer disease, gastritis, enlarged prostate. PLAN: Continue current medical management. Psych consult reviewed. JOB# [id number]
--- NOTE | 2018-10-07 01:53 | Progress Notes ---
DATE: 10/05/2018 SUBJECTIVE: The patient is seen and interviewed. The patient presents as irritable with poor impulse control. The patient lacks insight into his illness. Staff reports the patient is easily agitated and difficult to redirect. OBJECTIVE: Mood irritable. Affect constricted thought process, confused. The patient denied hallucinations or delusions. ASSESSMENT/PLAN: We provided the patient with supportive psychotherapy to include reality testing, reality orientation and reality integration. We provided to limit setting and de-escalation. We encouraged the patient to be able to verbalize his concerns and to demonstrate emotional and self-regulation. We provided remotivation for the patient to become compliant and stay compliant with all aspects of his care and treatment. We will follow up in 2 to 3 days to continue present treatment. JOB# [id number] MTDD
[2018-10-07] MEDS: Multivitamin w/ Minerals Tab PO SCH (09:44)
[2018-10-07] MEDS: Atorvastatin Calcium 10 MG TAB PO SCH (20:49)
--- NOTE | 2018-10-07 22:40 | Progress Notes ---
DATE: 10/07/2018 PSYCHIATRIC PROGRESS NOTE SUBJECTIVE: Staff was spoken to. The patient is interviewed. Mood is noted to be anxious. The patient's insight and judgment are noted to be still impaired. Impulse control seems to be improving. No side effects to the medications are noted. The patient's aggressive behavior seems to be coming down. The patient is currently on 1000 mg 2 times a day of the Depakote and Zyprexa, he is getting at 5 mg twice a day. The patient has been able to tolerate the medications. No side effects to the medications are noted. The patient is being closely monitored because the platelet count is coming down. BUN is noted to be high and the patient is being followed up for his aggressive behavior and valproic acid level is noted to be still pending. PLAN: To continue the patient with the supportive therapy. I encouraged the patient to verbalize the concerns rather than to act out. JOB# [id number]
[2018-10-08] MEDS: Multivitamin w/ Minerals Tab PO SCH (09:15)
--- NOTE | 2018-10-08 18:10 | Progress Notes ---
DATE: 10/08/2018 SUBJECTIVE: The patient is seen and interviewed. The patient is up in his Mariela chair. The patient's mood is anxious and irritable. The patient states that he does not think that this provider knows what to do regarding his care. The patient is possibly discharging today. The staff indicates the patient has made some intrusive remarks; however, the patient's aggressive behavior seems to be diminishing and stabilizing. OBJECTIVE: Mood irritable. Affect constricted. Thought process is confused and concrete. The patient denied any delusions or hallucinations. The patient's behavior is less aggressive. ASSESSMENT AND PLAN: The patient was provided supportive psychotherapy to include coping strategies for phase of life issues. We provided positive reinforcement and remotivation for the patient to follow through with staff direction and also to stay compliant with all aspects of his care and treatment. We will follow up in 2 days to continue care if the patient remains on the unit. JOB# [id number] TAY
[2018-10-08] MEDS: Atorvastatin Calcium 10 MG TAB PO SCH (21:12)
--- NOTE | 2018-10-09 00:29 | Progress Notes ---
DATE: 10/08/2018 INTERNAL MEDICINE CONSULTATION FOLLOWUP The patient is a 63-year-old male. Current medical problems include seizure disorder, hyperlipidemia, peptic ulcer disease, gastritis, arthritis, enlarged prostate, and osteoporosis. No new symptoms. OBJECTIVE: VITAL SIGNS: Stable. LUNGS: Clear. HEART: First and second heart sounds normal. Systolic present. ABDOMEN: Soft. Bowel sounds appear good. EXTREMITIES: Show arthritis. NEUROLOGIC: The patient has no new changes. PLAN: Continue current medical management. Psych consult reviewed. JOB# [id number]
--- NOTE | 2018-10-09 00:46 | Progress Notes ---
DATE: 10/08/2018 PSYCHIATRIC PROGRESS NOTE SUBJECTIVE: Staff was spoken to. The patient is interviewed. Mood is noted to be anxious. The patient's insight and judgment at this time are noted to be improving. Impulse control seems to be improving. No side effects to the medications are noted. Coping skills are noted to be improving. ASSESSMENT: The patient is stabilizing. PLAN: To discharge the patient today for followup on outpatient basis. JOB# [id number]
[2018-10-09] MEDS: Multivitamin w/ Minerals Tab PO SCH (08:27)
--- NOTE | 2018-10-09 20:09 | Progress Notes ---
DATE: 10/09/2018 SUBJECTIVE: The patient is a 63-year-old male. CURRENT MEDICAL PROBLEMS: Include seizure disorder, hyperlipidemia, arthritis, enlarged prostate, peptic ulcer disease, coronary artery disease. No new symptoms. OBJECTIVE: VITAL SIGNS: Stable. LUNGS: Clear. HEART: First and second heart sounds are normal. Systolic present. ABDOMEN: Soft, bowel sounds present. EXTREMITIES: Show arthritis. NEUROLOGIC: The patient has dementia. Continue current medical management. Psych consult reviewed. JOB# [id number]
--- NOTE | 2018-10-10 02:00 | Progress Notes ---
DATE: 10/09/2018 PSYCHIATRIC PROGRESS NOTE Staff was spoken to. The patient is interviewed. Mood is noted to be irritable. Affect is constricted. Insight and judgment at this time are noted to be still impaired. Impulse control is noted to be limited. Coping skills are noted to be limited. The patient has been having difficult time to cope with the stress. No side effects to the medications are noted at this time. The impulsivity has improved and hence it is decided to discharge the patient today. JOB# [id number]
== END 2018-10-09 17:00 | DRG 885 ==
LOC: ER 19:01 → GERO 20:47
PROVIDERS: ADMIT Psychiatry & Neurology Psychiatry; ATTEND Psychiatry & Neurology Psychiatry
DX: F25.9 Schizoaffective disorder, unspecified (principal); F03.91 Unspecified dementia, unspecified severity, with behavioral disturbance; I10 Essential (primary) hypertension; I25.10 Atherosclerotic heart disease of native coronary artery without angina pectoris; K27.9 Peptic ulcer, site unspecified, unspecified as acute or chronic, without hemorrhage or perforation; M19.90 Unspecified osteoarthritis, unspecified site; M81.0 Age-related osteoporosis without current pathological fracture; E78.5 Hyperlipidemia, unspecified; G40.909 Epilepsy, unspecified, not intractable, without status epilepticus; Z88.8 Allergy status to other drugs, medicaments and biological substances; Z79.899 Other long term (current) drug therapy
CPT/HCPCS: 36415-UA; 73501; 80053-TC; 80061-TC; 80164-TC; 83036-90; 84443-TC; 85025-TC; 86592-TC; 90899; 93005; 97530; G0410; J7051; X3904; Z7610